=== PATIENT | female | born 1950 | race African-American/Black ===

== ENCOUNTER 2020-09-10 20:33 | Emergency (ER) | payer MEDICARE ==
[~2020-09-10] VITALS: Ht 167.6 cm; Wt 78.0 kg
[2020-09-10] MEDS: MORPHINE SULFATE 4 MG/ML CPJ (NOT FOR IM USE) IV ONE (21:42)
[2020-09-10] MEDS: ONDANSETRON HCL 4MG/2ML INJ IV ONE (21:42)
[2020-09-10 21:44] LABS: BASOPHILS % 0.7 % (0.0-2.0); EOSINOPHILS % 0.7 % (0.0-5.0); HEMATOCRIT. 44.3 % (36.0-48.0); HEMOGLOBIN. 15.2 g/dL (12.0-16.0); LYMPHOCYTES % 20.9 % (20.0-50.0); MEAN CORPUSCULAR HEMOGLOBIN 32.8 pg (28.0-32.0); MEAN CORPUSCULAR VOLUME 95.9 fL (81.0-99.0); MEAN PLATELET VOLUME 8.1 fl (7.4-10.4); MONOCYTES % 8.7 % (2.0-8.0); PLATELET 247 x1000/uL (130-400); RED BLOOD CELL COUNT 4.63 mill/uL (4.2-5.4); RED CELL DISTRIBUTION WIDTH 15.1 % (11.6-14.6)
[2020-09-10 22:00] LABS: PROTHROMBIN TIME 10.4 sec (9.6-11.0)
[2020-09-10 22:14] LABS: CHLORIDE 105 mEq/L (98-107)
[2020-09-11 00:05] LABS: CLARITY URINE CLEAR (CLEAR); COLOR URINE YELLOW (YELLOW); KETONES URINE NEGATIVE (NEGATIVE); LEUKOCYTE ESTERASE URINE NEGATIVE (NEGATIVE); NITRITE URINE NEGATIVE (NEGATIVE); OCCULT BLOOD URINE NEGATIVE (NEGATIVE); PH URINE 6.5 (4.5-8.0); PROTEIN URINE NEGATIVE (NEGATIVE); SPECIFIC GRAVITY URINE 1.012 (1.005-1.030); UROBILINOGEN URINE 0.2 E.U./dL (0.2-1.0)
[2020-09-11 00:16] LABS: *AMPHETAMINES SCREEN URINE NEGATIVE (NEGATIVE); *BARBITURATES SCREEN URINE NEGATIVE (NEGATIVE); *BENZODIAZEPINES SCREEN URINE NEGATIVE (NEGATIVE); *COCAINE SCREEN URINE NEGATIVE (NEGATIVE); METHADONE URINE SCREEN NEGATIVE (NEGATIVE)
[2020-09-11 00:17] LABS: CANNABINOID URINE SCREEN NEGATIVE (NEGATIVE); OPIATES URINE SCREEN PRESUMTIVE POSITIVE (NEGATIVE); PHENCYCLIDINE URINE SCREEN NEGATIVE (NEGATIVE)
[2020-09-11 00:38] VITALS: BP 147/87
== END 2020-09-11 00:42 | disposition home or self-care (01) ==
LOC: ER 20:33
DX: N20.0 Calculus of kidney (principal); J44.9 Chronic obstructive pulmonary disease, unspecified; I10 Essential (primary) hypertension; Z88.0 Allergy status to penicillin
CPT/HCPCS: 36415; 71045; 74177; 80053; 80305; 81003; 83690; 83880; 84484; 85025; 85610; 93005; 96374; 96375; 99285; J2270; J2405; Q9967

== ENCOUNTER 2021-08-20 05:10 | Inpatient (IN) | payer MEDICARE, OTHER ==
[~2021-08-20] VITALS: Ht 167.6 cm; Wt 81.0 kg
[2021-08-20] MEDS ORDERED: MORPHINE SULFATE 4 MG/ML CPJ (NOT FOR IM USE) IV STA (05:32)
[2021-08-20] MEDS ORDERED: ONDANSETRON HCL 4MG/2ML INJ IV ONE (05:45)
[2021-08-20 05:54] LABS: BASOPHILS % 0.9 % (0.0-2.0); EOSINOPHILS % 0.5 % (0.0-5.0); HEMATOCRIT. 42.7 % (36.0-48.0); HEMOGLOBIN. 14.8 g/dL (12.0-16.0); LYMPHOCYTES % 22.7 % (20.0-50.0); MEAN CORPUSCULAR HEMOGLOBIN 32.9 pg (28.0-32.0); MEAN CORPUSCULAR VOLUME 95.1 fL (81.0-99.0); MEAN PLATELET VOLUME 7.5 fl (7.4-10.4); MONOCYTES % 7.9 % (2.0-8.0); PLATELET 283 x1000/uL (130-400); RED BLOOD CELL COUNT 4.49 mill/uL (4.2-5.4); RED CELL DISTRIBUTION WIDTH 14.4 % (11.6-14.6)
[2021-08-20 06:11] LABS: INR 0.9; PROTHROMBIN TIME 9.8 sec (9.6-11.0)
[2021-08-20 06:13] LABS: CHLORIDE 109 mEq/L (98-107)
[2021-08-20 06:32] LABS: CLARITY URINE CLEAR (CLEAR); COLOR URINE YELLOW (YELLOW); KETONES URINE NEGATIVE (NEGATIVE); LEUKOCYTE ESTERASE URINE NEGATIVE (NEGATIVE); NITRITE URINE NEGATIVE (NEGATIVE); OCCULT BLOOD URINE TRACE (NEGATIVE); PROTEIN URINE NEGATIVE (NEGATIVE); SPECIFIC GRAVITY URINE 1.014 (1.005-1.030); UROBILINOGEN URINE 0.2 E.U./dL (0.2-1.0)
[2021-08-20] MEDS: IPRATROPIUM/ALBUTEROL 0.5-3(2.5)MG/3ML NEB HHN PRN ×2 (10:15→20:16)
[2021-08-20] MEDS ORDERED: ACETAMINOPHEN 650MG SUPP PR PRN (11:30)
[2021-08-20] MEDS ORDERED: ACETAMINOPHEN 650MG/20.3ML UDC GT PRN (11:30)
[2021-08-20] MEDS ORDERED: DIPHENHYDRAMINE 50MG/ML VIAL IV PRN (11:30)
[2021-08-20] MEDS ORDERED: ONDANSETRON HCL 4MG/2ML INJ IV PRN (11:30)
[2021-08-20] MEDS ORDERED: MORPHINE SULFATE 2 MG/ML CPJ (NOT FOR IM USE) IV PRN (11:30)
[2021-08-20] MEDS ORDERED: NA PHOS,M-B/NA PHOS,DI-BA ENEMA 118ML PR PRN (11:30)
[2021-08-20] MEDS ORDERED: HYDROCODONE/ACETAMINOPHEN 5/325MG TABLET PO PRN (11:30)
[2021-08-20] MEDS ORDERED: IPRATROPIUM/ALBUTEROL 0.5-3(2.5)MG/3ML NEB NEB PRN (11:30)
[2021-08-20] MEDS ORDERED: DOCUSATE SODIUM 100MG CAPSULE PO PRN (11:30)
[2021-08-20] MEDS ORDERED: GUAIFENESIN 200MG/10ML SUGAR FREE UDC PO PRN (11:30)
[2021-08-20] MEDS ORDERED: LORAZEPAM 0.5MG TABLET PO PRN (11:30)
[2021-08-20] MEDS ORDERED: METRONIDAZOLE 500 MG PREMIX 100 ML IV SCH (12:00)
[2021-08-20] MEDS: FAMOTIDINE 20MG/2ML VIAL IV SCH (12:00)
[2021-08-20] MEDS: DEXT 5%/0.45% NACL 1000ML 1,000 ML IV SCH (12:01)
[2021-08-20] MEDS: ENOXAPARIN 40MG/0.4ML SYR SUBCUT SCH (12:01)
[2021-08-20 14:00] VITALS: BP 150/89
[2021-08-20] MEDS ORDERED: PIPERACILLIN/TAZOBACTAM 3.375 G in DEXTROSE 5% WATER 50 ML IV SCH (14:00)
[2021-08-20] MEDS ORDERED: THEO400T MT (15:04)
[2021-08-20] MEDS ORDERED: BENA20TA10 MT (15:04)
[2021-08-20] MEDS ORDERED: ESTR-21 PO (15:04)
[2021-08-20] MEDS ORDERED: LACT1CAP63 MT (15:04)
[2021-08-20] MEDS ORDERED: METO-396 MT (15:04)
[2021-08-20] MEDS ORDERED: AMLO10TA80 MT (15:04)
[2021-08-20] MEDS: NICOTINE 14MG PATCH TD SCH (15:33)
[2021-08-20] MEDS: LEVOFLOXACIN 500MG PREMIX 100 ML IV SCH (15:34)
[2021-08-20 16:00] VITALS: BP 177/89
[2021-08-20] MEDS: CLONIDINE 0.1MG TABLET PO PRN (17:27)
[2021-08-20] MEDS: AMLODIPINE 10MG TABLET PO SCH (17:48)
[2021-08-20 20:00] VITALS: BP 154/85
[2021-08-20] MEDS: METRONIDAZOLE 500 MG PREMIX 100 ML IV SCH (23:49)
[2021-08-21] VITALS: BP 155/94
[2021-08-21] MEDS: MAGNESIUM/ALUMINUM HYDROXIDE/SIMETHICONE 30ML UDC PO PRN ×2 (01:34→16:30)
[2021-08-21] MEDS: IPRATROPIUM/ALBUTEROL 0.5-3(2.5)MG/3ML NEB HHN PRN ×3 (01:48→14:36)
[2021-08-21 04:00] VITALS: BP 158/95
[2021-08-21] MEDS: METRONIDAZOLE 500 MG PREMIX 100 ML IV SCH ×2 (06:15→13:20)
[2021-08-21] MEDS: DEXT 5%/0.45% NACL 1000ML 1,000 ML IV SCH ×2 (06:21→13:20)
[2021-08-21 07:30] LABS: BASOPHILS % 0.7 % (0.0-2.0); EOSINOPHILS % 0.8 % (0.0-5.0); HEMATOCRIT. 43.6 % (36.0-48.0); HEMOGLOBIN. 14.4 g/dL (12.0-16.0); LYMPHOCYTES % 27.1 % (20.0-50.0); MEAN CORPUSCULAR HEMOGLOBIN 32.4 pg (28.0-32.0); MEAN PLATELET VOLUME 7.7 fl (7.4-10.4); MONOCYTES % 7.8 % (2.0-8.0); NEUTROPHILS % 63.6 % (40.0-76.0); PLATELET 287 x1000/uL (130-400); RED BLOOD CELL COUNT 4.45 mill/uL (4.2-5.4); RED CELL DISTRIBUTION WIDTH 14.7 % (11.6-14.6)
[2021-08-21 08:00] VITALS: BP 170/100
[2021-08-21] MEDS: CLONIDINE 0.1MG TABLET PO PRN (08:18)
[2021-08-21] MEDS: NICOTINE 14MG PATCH TD SCH (08:19)
[2021-08-21] MEDS: FAMOTIDINE 20MG/2ML VIAL IV SCH (08:19)
[2021-08-21] MEDS: AMLODIPINE 10MG TABLET PO SCH (08:19)
[2021-08-21 08:25] LABS: CHLORIDE 108 mEq/L (98-107)
[2021-08-21 08:29] LABS: AMYLASE 49 IU/L (25-115)
[2021-08-21 08:32] LABS: LDL CHOLESTEROL 102 mg/dL (5-100)
[2021-08-21 08:34] LABS: HDL CHOLESTEROL 63 mg/dL (40-59); T4 FREE 1.19 ng/dL (0.76-1.46)
[2021-08-21] MEDS ORDERED: PNEUMOCOCCAL 23-VAL P-SAC VAC 0.5 ML IM ONE (09:00)
[2021-08-21] MEDS ORDERED: BENAZEPRIL 10MG TABLET PO SCH (11:00)
[2021-08-21] MEDS ORDERED: NALOXONE HCL 0.4MG/ML VIAL IV PRN (11:00)
[2021-08-21] MEDS: ENOXAPARIN 40MG/0.4ML SYR SUBCUT SCH (11:04)
[2021-08-21 11:55] VITALS: BP 162/97
[2021-08-21] MEDS: LEVOFLOXACIN 500MG PREMIX 100 ML IV SCH (12:25)
[2021-08-21] MEDS ORDERED: LACTULOSE 20G/30ML UDC PO NR (13:15)
[2021-08-21 15:02] VITALS: BP 121/76
[2021-08-21 16:00] VITALS: BP 142/98
[2021-08-21] MEDS ORDERED: BISACODYL 10MG SUPP PR ONE (16:45)
[2021-08-21] MEDS ORDERED: BISACODYL 10MG SUPP PR NR (16:45)
== END 2021-08-21 18:30 | disposition home or self-care (01) | DRG 693 ==
LOC: ER 05:24 → 7EST 08:41 → SUPCPDRO 13:30 → ENRESERV 13:35
PROVIDERS: ADMIT Internal Medicine; ATTEND Internal Medicine
DX: N20.0 Calculus of kidney (principal); K85.90 Acute pancreatitis without necrosis or infection, unspecified; J44.1 Chronic obstructive pulmonary disease with (acute) exacerbation; I10 Essential (primary) hypertension; Z20.822 Contact with and (suspected) exposure to COVID-19; N28.82 Megaloureter; N28.89 Other specified disorders of kidney and ureter; N28.1 Cyst of kidney, acquired; K59.00 Constipation, unspecified; F17.210 Nicotine dependence, cigarettes, uncomplicated; Z87.442 Personal history of urinary calculi; Z88.0 Allergy status to penicillin; Z71.6 Tobacco abuse counseling
CPT/HCPCS: 36415; 71045; 74176; 80053; 80061; 81003; 82150; 84439; 84443; 85025; 87426; 93005; 93306; 93970; 94640; 97161; 99285; J1650; J1956; J2270; J2405; J3490

== ENCOUNTER 2021-10-27 07:04 | Emergency (ER) | payer OTHER ==
[~2021-10-27] VITALS: Ht 167.6 cm; Wt 78.0 kg
[~2021-10-27 07:04] MED LIST: AMLO10TA80 MT; BENA20TA10 MT; ESTR-21 PO; LACT1CAP63 MT; METO-396 MT; THEO400T MT
[2021-10-27] MEDS ORDERED: KETOROLAC 30MG/ML VIAL IV STA (07:27)
[2021-10-27] MEDS ORDERED: ONDANSETRON HCL 4MG/2ML INJ IV STA (07:27)
[2021-10-27] MEDS ORDERED: SODIUM CHLORIDE 0.9% 1,000 ML IV ONE (07:30)
[2021-10-27 07:59] LABS: BASOPHILS % 0.7 % (0.0-2.0); EOSINOPHILS % 1.2 % (0.0-5.0); HEMATOCRIT. 44.8 % (36.0-48.0); HEMOGLOBIN. 14.7 g/dL (12.0-16.0); LYMPHOCYTES % 22.7 % (20.0-50.0); MEAN CORPUSCULAR HEMOGLOBIN 32.4 pg (28.0-32.0); MEAN CORPUSCULAR VOLUME 98.6 fL (81.0-99.0); MEAN PLATELET VOLUME 7.7 fl (7.4-10.4); MONOCYTES % 7.7 % (2.0-8.0); NEUTROPHILS % 67.7 % (40.0-76.0); PLATELET 300 x1000/uL (130-400); RED BLOOD CELL COUNT 4.55 mill/uL (4.2-5.4); RED CELL DISTRIBUTION WIDTH 14.6 % (11.6-14.6)
[2021-10-27 08:04] LABS: CHLORIDE 109 mEq/L (98-107)
[2021-10-27 09:25] LABS: CLARITY URINE CLEAR (CLEAR); COLOR URINE YELLOW (YELLOW); KETONES URINE NEGATIVE (NEGATIVE); LEUKOCYTE ESTERASE URINE NEGATIVE (NEGATIVE); NITRITE URINE NEGATIVE (NEGATIVE); OCCULT BLOOD URINE NEGATIVE (NEGATIVE); PROTEIN URINE NEGATIVE (NEGATIVE); UROBILINOGEN URINE 0.2 E.U./dL (0.2-1.0)
[2021-10-27 11:22] VITALS: BP 145/85
== END 2021-10-27 11:24 | disposition home or self-care (01) ==
LOC: ER 09:21
DX: R10.9 Unspecified abdominal pain (principal); N13.30 Unspecified hydronephrosis; J45.909 Unspecified asthma, uncomplicated; J44.9 Chronic obstructive pulmonary disease, unspecified; M54.30 Sciatica, unspecified side; Z88.0 Allergy status to penicillin; Z90.710 Acquired absence of both cervix and uterus
CPT/HCPCS: 36415; 71045; 74176; 80053; 81003; 85025; 93005; 96361; 96374; 96375; 99285; J1885; J2405; J7030

== ENCOUNTER 2022-06-12 07:39 | Inpatient (IN) | payer OTHER ==
[~2022-06-12] VITALS: Ht 200.7 cm; Wt 72.6 kg
[~2022-06-12 07:39] MED LIST changes: +BENA-8 MT; -BENA20TA10 MT
[2022-06-12 08:32] LABS: BASOPHILS % 0.5 % (0.0-2.0); EOSINOPHILS % 0.2 % (0.0-5.0); HEMATOCRIT. 42.3 % (36.0-48.0); HEMOGLOBIN. 14.3 g/dL (12.0-16.0); LYMPHOCYTES % 13.2 % (20.0-50.0); MEAN CORPUSCULAR HEMOGLOBIN 32.5 pg (28.0-32.0); MEAN CORPUSCULAR VOLUME 95.9 fL (81.0-99.0); MONOCYTES % 4.2 % (2.0-8.0); NEUTROPHILS % 81.9 % (40.0-76.0); PLATELET 287 x1000/uL (130-400); RED BLOOD CELL COUNT 4.41 mill/uL (4.2-5.4); RED CELL DISTRIBUTION WIDTH 15.1 % (11.6-14.6)
[2022-06-12 08:44] LABS: INR 0.9; PROTHROMBIN TIME 9.9 sec (9.6-11.0)
[2022-06-12 09:15] LABS: CLARITY URINE CLEAR (CLEAR); COLOR URINE YELLOW (YELLOW); KETONES URINE NEGATIVE (NEGATIVE); LEUKOCYTE ESTERASE URINE NEGATIVE (NEGATIVE); NITRITE URINE NEGATIVE (NEGATIVE); OCCULT BLOOD URINE NEGATIVE (NEGATIVE); PH URINE 7.5 (4.5-8.0); PROTEIN URINE NEGATIVE (NEGATIVE); SPECIFIC GRAVITY URINE 1.011 (1.005-1.030); UROBILINOGEN URINE 0.2 E.U./dL (0.2-1.0)
[2022-06-12 09:20] LABS: CHLORIDE 106 mEq/L (98-107)
[2022-06-12] MEDS ORDERED: KETOROLAC 30MG/ML VIAL IV ONE (10:15)
[2022-06-12] MEDS ORDERED: LACTULOSE 20G/30ML UDC PO ONE (10:15)
[2022-06-12 13:00] VITALS: BP 181/106
[2022-06-12 13:35] VITALS: BP 186/106
[2022-06-12] MEDS: METOPROLOL SUCCINATE 50MG ER TABLET PO SCH (15:00)
[2022-06-12] MEDS: BENAZEPRIL 10MG TABLET PO SCH (15:16)
[2022-06-12] MEDS: AMLODIPINE 10MG TABLET PO SCH (15:16)
[2022-06-12] MEDS ORDERED: CEFEPIME 1,000 MG in DEXTROSE 5% WATER 50 ML IV SCH ×2 (15:30→16:00)
[2022-06-12] MEDS: ENOXAPARIN 40MG/0.4ML SYR SUBCUT SCH (15:30)
[2022-06-12] MEDS: SODIUM CHLORIDE 0.9% 1,000 ML IV SCH (15:37)
[2022-06-12 16:00] VITALS: BP 119/47
[2022-06-12] MEDS: LEVOFLOXACIN 500MG PREMIX 100 ML IV SCH (17:20)
[2022-06-12] MEDS: ACETAMINOPHEN 325MG TABLET PO PRN (17:21)
[2022-06-12] MEDS: ONDANSETRON HCL 4MG/2ML INJ IV PRN (18:41)
[2022-06-12] MEDS: ALBUTEROL (0.083%) 2.5MG/3ML NEB HHN SCH (21:07)
[2022-06-12] MEDS: KETOROLAC 30MG/ML VIAL IV SCH (21:19)
[2022-06-13] MEDS: ALBUTEROL (0.083%) 2.5MG/3ML NEB HHN SCH ×6 (00:10→21:32)
[2022-06-13] MEDS: SODIUM CHLORIDE 0.9% 1,000 ML IV SCH ×2 (04:54→17:20)
[2022-06-13] MEDS: KETOROLAC 30MG/ML VIAL IV SCH ×2 (04:56→13:41)
[2022-06-13 06:00] LABS: CHLORIDE 104 mEq/L (98-107)
[2022-06-13 06:18] LABS: BASOPHILS % 0.5 % (0.0-2.0); EOSINOPHILS % 0.5 % (0.0-5.0); HEMATOCRIT. 42.5 % (36.0-48.0); HEMOGLOBIN. 14.5 g/dL (12.0-16.0); LYMPHOCYTES % 27.7 % (20.0-50.0); MEAN CORPUSCULAR HEMOGLOBIN 32.1 pg (28.0-32.0); MEAN CORPUSCULAR VOLUME 94.1 fL (81.0-99.0); MEAN PLATELET VOLUME 7.8 fl (7.4-10.4); MONOCYTES % 9.8 % (2.0-8.0); NEUTROPHILS % 61.5 % (40.0-76.0); PLATELET 297 x1000/uL (130-400); RED BLOOD CELL COUNT 4.52 mill/uL (4.2-5.4)
[2022-06-13 08:00] VITALS: BP 147/103
[2022-06-13] MEDS: BENAZEPRIL 10MG TABLET PO SCH (08:26)
[2022-06-13] MEDS: AMLODIPINE 10MG TABLET PO SCH (08:26)
[2022-06-13] MEDS: METOPROLOL SUCCINATE 50MG ER TABLET PO SCH (08:26)
[2022-06-13] MEDS: ONDANSETRON HCL 4MG/2ML INJ IV PRN (08:26)
[2022-06-13 12:00] VITALS: BP 142/100
[2022-06-13] MEDS: DOCUSATE SODIUM 250MG CAPSULE PO SCH (12:33)
[2022-06-13] MEDS: LACTULOSE 20G/30ML UDC PO SCH (12:33)
[2022-06-13] MEDS: POLYETHYLENE GLYCOL 3350 (17GM) 1 DOSE PACK PO SCH (12:33)
[2022-06-13] MEDS: ENOXAPARIN 40MG/0.4ML SYR SUBCUT SCH (13:41)
[2022-06-13 16:00] VITALS: BP 171/109
[2022-06-13] MEDS: ACETAMINOPHEN 325MG TABLET PO PRN (16:11)
[2022-06-13] MEDS: CLONIDINE 0.1MG TABLET PO PRN ×2 (16:18→19:51)
[2022-06-13] MEDS: LEVOFLOXACIN 500MG PREMIX 100 ML IV SCH (17:20)
[2022-06-13] MEDS ORDERED: BISACODYL 10MG SUPP PR NR (17:30)
[2022-06-13] MEDS: LORATADINE 10MG TABLET PO SCH (17:36)
[2022-06-13] MEDS ORDERED: NA PHOS,M-B/NA PHOS,DI-BA ENEMA 118ML PR PRN (17:52)
[2022-06-13] MEDS ORDERED: BISACODYL 10MG SUPP PR PRN (18:00)
[2022-06-13] MEDS ORDERED: KETOROLAC 15MG/ML VIAL IV PRN (19:00)
[2022-06-13 20:00] VITALS: BP 166/117
[2022-06-14] VITALS: BP 143/56
[2022-06-14] MEDS: ALBUTEROL (0.083%) 2.5MG/3ML NEB HHN SCH ×5 (00:21→15:41)
[2022-06-14 04:00] VITALS: BP 143/123
[2022-06-14] MEDS: CLONIDINE 0.1MG TABLET PO PRN (06:10)
[2022-06-14] MEDS: SODIUM CHLORIDE 0.9% 1,000 ML IV SCH (07:23)
[2022-06-14 08:00] VITALS: BP 144/87
[2022-06-14 08:15] LABS: BASOPHILS % 0.5 % (0.0-2.0); EOSINOPHILS % 0.6 % (0.0-5.0); HEMATOCRIT. 42.1 % (36.0-48.0); HEMOGLOBIN. 14.3 g/dL (12.0-16.0); LYMPHOCYTES % 19.1 % (20.0-50.0); MEAN CORPUSCULAR HEMOGLOBIN 32.2 pg (28.0-32.0); MEAN CORPUSCULAR VOLUME 94.8 fL (81.0-99.0); MEAN PLATELET VOLUME 7.8 fl (7.4-10.4); MONOCYTES % 9.3 % (2.0-8.0); NEUTROPHILS % 70.5 % (40.0-76.0); PLATELET 275 x1000/uL (130-400); RED BLOOD CELL COUNT 4.44 mill/uL (4.2-5.4); RED CELL DISTRIBUTION WIDTH 14.7 % (11.6-14.6)
[2022-06-14] MEDS: LACTULOSE 20G/30ML UDC PO SCH (09:18)
[2022-06-14] MEDS: POLYETHYLENE GLYCOL 3350 (17GM) 1 DOSE PACK PO SCH (09:18)
[2022-06-14 09:22] LABS: CHLORIDE 101 mEq/L (98-107)
[2022-06-14] MEDS: BENAZEPRIL 10MG TABLET PO SCH (09:30)
[2022-06-14] MEDS: AMLODIPINE 10MG TABLET PO SCH (09:31)
[2022-06-14] MEDS: DOCUSATE SODIUM 250MG CAPSULE PO SCH (09:31)
[2022-06-14] MEDS: LORATADINE 10MG TABLET PO SCH (09:32)
[2022-06-14] MEDS: METOPROLOL SUCCINATE 50MG ER TABLET PO SCH (09:36)
[2022-06-14 12:00] VITALS: BP 137/102
[2022-06-14] MEDS ORDERED: LEVOFLOXACIN 500MG TABLET PO SCH (13:00)
[2022-06-14] MEDS: ENOXAPARIN 40MG/0.4ML SYR SUBCUT SCH (14:59)
[2022-06-14] MEDS: METOCLOPRAMIDE HCL 10MG/2ML VIAL IV SCH ×2 (15:00→18:22)
[2022-06-14 16:00] VITALS: BP 130/102
== END 2022-06-14 19:10 | disposition home or self-care (01) | DRG 392 ==
LOC: ER 07:39 → 6EST 11:48 → EDBEDREQTM 11:51 → EDBEDREQ 11:51 → ENRESERV 12:12
PROVIDERS: ADMIT Internal Medicine; ATTEND Internal Medicine
DX: K59.04 Chronic idiopathic constipation (principal); N12 Tubulo-interstitial nephritis, not specified as acute or chronic; J44.9 Chronic obstructive pulmonary disease, unspecified; K76.89 Other specified diseases of liver; I10 Essential (primary) hypertension; N28.1 Cyst of kidney, acquired; F17.210 Nicotine dependence, cigarettes, uncomplicated; M54.30 Sciatica, unspecified side; Z87.442 Personal history of urinary calculi; Z90.710 Acquired absence of both cervix and uterus; Z88.0 Allergy status to penicillin; Z79.899 Other long term (current) drug therapy
CPT/HCPCS: 36415; 74018; 74176; 80048; 80053; 81003; 85025; 93005; 94640; 99285; J0692; J1650; J1885; J1956; J2405; J2765; J7030; J7060

== ENCOUNTER 2022-10-07 09:17 | Inpatient (IN) | payer MEDICARE, OTHER ==
[~2022-10-07] VITALS: Ht 167.6 cm; Wt 70.8 kg
[2022-10-07] MEDS ORDERED: PANTOPRAZOLE SODIUM 40 MG/VIAL IV STA (09:39)
[2022-10-07] MEDS ORDERED: ONDANSETRON HCL 4MG/2ML INJ IV STA (09:39)
[2022-10-07] MEDS ORDERED: MAGNESIUM/ALUMINUM HYDROXIDE/SIMETHICONE 30ML UDC PO STA (09:39)
[2022-10-07] MEDS ORDERED: ACETAMINOPHEN 325MG TABLET PO STA (09:39)
[2022-10-07 10:54] LABS: CLARITY URINE CLEAR (CLEAR); COLOR URINE YELLOW (YELLOW); KETONES URINE NEGATIVE (NEGATIVE); LEUKOCYTE ESTERASE URINE NEGATIVE (NEGATIVE); NITRITE URINE NEGATIVE (NEGATIVE); OCCULT BLOOD URINE NEGATIVE (NEGATIVE); PROTEIN URINE NEGATIVE (NEGATIVE); SPECIFIC GRAVITY URINE 1.011 (1.005-1.030); UROBILINOGEN URINE 0.2 E.U./dL (0.2-1.0)
[2022-10-07 11:02] LABS: BASOPHILS % 0.7 % (0.0-2.0); EOSINOPHILS % 0.1 % (0.0-5.0); HEMOGLOBIN. 15.4 g/dL (12.0-16.0); LYMPHOCYTES % 14.2 % (20.0-50.0); MEAN CORPUSCULAR HEMOGLOBIN 32.7 pg (28.0-32.0); MEAN CORPUSCULAR VOLUME 95.8 fL (81.0-99.0); MEAN PLATELET VOLUME 8.2 fl (7.4-10.4); MONOCYTES % 4.6 % (2.0-8.0); NEUTROPHILS % 80.4 % (40.0-76.0); PLATELET 293 x1000/uL (130-400); RED CELL DISTRIBUTION WIDTH 15.2 % (11.6-14.6)
[2022-10-07] MEDS ORDERED: HYDROCODONE/ACETAMINOPHEN 5/325MG TABLET PO ONE (12:45)
[2022-10-07 13:45] LABS: CHLORIDE 106 mEq/L (98-107)
[2022-10-07] MEDS ORDERED: MORPHINE SULFATE 4 MG/ML CPJ (NOT FOR IM USE) IV NR ×2 (14:45→19:08)
[2022-10-07] MEDS ORDERED: HYDRALAZINE 20MG/ML VIAL IV NR (19:08)
[2022-10-07] MEDS ORDERED: IPRATROPIUM/ALBUTEROL 0.5-3(2.5)MG/3ML NEB HHN NR (21:45)
[2022-10-07] MEDS ORDERED: CLONIDINE 0.1MG TABLET PO PRN (22:15)
[2022-10-07] MEDS ORDERED: ONDANSETRON HCL 4MG/2ML INJ IV PRN (22:15)
[2022-10-07] MEDS: IPRATROPIUM/ALBUTEROL 0.5-3(2.5)MG/3ML NEB HHN SCH ×2 (22:16→23:56)
[2022-10-07] MEDS ORDERED: NALOXONE HCL 0.4MG/ML VIAL IV PRN (23:45)
[2022-10-07] MEDS: DEXT 5%/0.45% NACL 1000ML 1,000 ML IV SCH (23:54)
[2022-10-08] MEDS: MORPHINE SULFATE 2 MG/ML CPJ (NOT FOR IM USE) IV PRN ×2 (00:24→11:04)
[2022-10-08] MEDS: IPRATROPIUM/ALBUTEROL 0.5-3(2.5)MG/3ML NEB HHN SCH ×4 (01:52→12:55)
[2022-10-08 02:50] VITALS: BP 173/99
[2022-10-08 08:00] VITALS: BP 138/99
[2022-10-08] MEDS ORDERED: AMLODIPINE 10MG TABLET PO SCH (09:00)
[2022-10-08] MEDS ORDERED: PANTOPRAZOLE SODIUM 40 MG/VIAL IV SCH (09:00)
[2022-10-08 12:00] VITALS: BP 152/102
[2022-10-08] MEDS: DEXT 5%/0.45% NACL 1000ML 1,000 ML IV SCH (14:13)
[2022-10-08 15:19] VITALS: BP 138/99
== END 2022-10-08 15:55 | disposition home or self-care (01) | DRG 92 ==
LOC: ER 09:17 → 6EST 18:05 → EDBEDREQTM 18:06 → EDBEDREQSVC 18:06 → EDBEDREQ 18:06
PROVIDERS: ADMIT Internal Medicine; ATTEND Internal Medicine
DX: G89.28 Other chronic postprocedural pain (principal); N13.2 Hydronephrosis with renal and ureteral calculous obstruction; R10.32 Left lower quadrant pain; I10 Essential (primary) hypertension; J44.9 Chronic obstructive pulmonary disease, unspecified; F17.200 Nicotine dependence, unspecified, uncomplicated; K59.00 Constipation, unspecified; Z88.0 Allergy status to penicillin; Z90.710 Acquired absence of both cervix and uterus
CPT/HCPCS: 36415; 74176; 80053; 81003; 83605; 85025; 94640; 99285; C9113; J0360; J2270; J2405

== ENCOUNTER 2022-12-12 09:50 | Inpatient (IN) | payer MEDICARE, OTHER ==
[~2022-12-12] VITALS: Ht 167.6 cm; Wt 72.6 kg
[2022-12-12] MEDS ORDERED: FAMOTIDINE 20MG/2ML VIAL IV ONE (10:30)
[2022-12-12] MEDS ORDERED: ONDANSETRON HCL 4MG/2ML INJ IV ONE (10:30)
[2022-12-12] MEDS ORDERED: SODIUM CHLORIDE 0.9% 1,000 ML IV ONE (10:30)
[2022-12-12 11:50] LABS: BASOPHILS % 0.7 % (0.0-2.0); EOSINOPHILS % 0.2 % (0.0-5.0); HEMATOCRIT. 44.7 % (36.0-48.0); HEMOGLOBIN. 14.8 g/dL (12.0-16.0); LYMPHOCYTES % 17.6 % (20.0-50.0); MEAN CORPUSCULAR HEMOGLOBIN 32.6 pg (28.0-32.0); MEAN CORPUSCULAR VOLUME 98.3 fL (81.0-99.0); MEAN PLATELET VOLUME 7.6 fl (7.4-10.4); MONOCYTES % 5.5 % (2.0-8.0); PLATELET 214 x1000/uL (130-400); RED BLOOD CELL COUNT 4.55 mill/uL (4.2-5.4); RED CELL DISTRIBUTION WIDTH 15.4 % (11.6-14.6)
[2022-12-12] MEDS ORDERED: ONDANSETRON HCL 4MG/2ML INJ IV NR ×2 (12:30→16:00)
[2022-12-12] MEDS ORDERED: FAMOTIDINE 20MG/2ML VIAL IV NR (12:30)
[2022-12-12 12:36] LABS: CHLORIDE 102 mEq/L (98-107)
[2022-12-12 12:49] LABS: PROTHROMBIN TIME 10.4 sec (9.6-11.0)
[2022-12-12] MEDS ORDERED: MORPHINE SULFATE 4 MG/ML CPJ (NOT FOR IM USE) IV ONE (14:00)
[2022-12-12] MEDS ORDERED: IOHEXOL-300 100 ML BOTTLE ONE (15:31)
[2022-12-13] MEDS ORDERED: ACETAMINOPHEN 325MG TABLET PO PRN (09:00)
[2022-12-13] MEDS ORDERED: ONDANSETRON HCL 4MG/2ML INJ IV PRN (09:00)
[2022-12-13] MEDS ORDERED: TRAMADOL 50MG TABLET PO PRN (09:00)
[2022-12-13] MEDS ORDERED: LEVOFLOXACIN 500MG PREMIX 100 ML IV SCH (09:00)
[2022-12-13] MEDS ORDERED: NALOXONE HCL 0.4MG/ML VIAL IV PRN (09:15)
[2022-12-13 14:00] VITALS: BP 143/93
[2022-12-13 15:16] VITALS: BP 143/93
[2022-12-13 15:41] LABS: CLARITY URINE CLEAR (CLEAR); COLOR URINE YELLOW (YELLOW); KETONES URINE TRACE (NEGATIVE); LEUKOCYTE ESTERASE URINE TRACE (NEGATIVE); NITRITE URINE NEGATIVE (NEGATIVE); OCCULT BLOOD URINE NEGATIVE (NEGATIVE); PH URINE 5.5 (4.5-8.0); PROTEIN URINE 1+ (NEGATIVE); UROBILINOGEN URINE 0.2 E.U./dL (0.2-1.0)
[2022-12-13 16:35] VITALS: BP 138/88
== END 2022-12-13 16:55 | disposition home or self-care (01) | DRG 693 ==
LOC: ER 09:50 → MICUSO 16:19 → EDBEDREQTM 16:30 → EDBEDREQ 16:30 → 7EST 12-13 14:05
PROVIDERS: ADMIT Internal Medicine; ATTEND Internal Medicine
DX: N13.30 Unspecified hydronephrosis (principal); K85.90 Acute pancreatitis without necrosis or infection, unspecified; E44.1 Mild protein-calorie malnutrition; E87.1 Hypo-osmolality and hyponatremia; I11.0 Hypertensive heart disease with heart failure; I16.0 Hypertensive urgency; J44.9 Chronic obstructive pulmonary disease, unspecified; I50.9 Heart failure, unspecified; K76.89 Other specified diseases of liver; Z88.0 Allergy status to penicillin; Z90.710 Acquired absence of both cervix and uterus; Z68.25 Body mass index [BMI] 25.0-25.9, adult
CPT/HCPCS: 36415; 74177; 76700; 80053; 81003; 83605; 85025; 93005; 99285; J1956; J2270; J2405; J3490; J7030; Q9967